=== PATIENT | female | born 1950 ===

== ENCOUNTER → 2018-07-23 | Outpatient (CLI) | payer OTHER, BC ==
[~2018-07-23] VITALS: Ht 157.5 cm; Wt 81.6 kg
[~2018-07-23] MED LIST: ALENDRONATE SOD70 MG PO; CYMBALTA60 MG PO; LYRICA100 MG PO; MYRBETRIQ50 MG PO; NORCO 5-325 TA1 EACH PO; PRAVACHOL40 MG PO
--- NOTE | ~2018-07-23 | HPC ---
[facility] [place] [place] [address] PAIN MANAGEMENT CONSULTATION Name: HIGINIO CORDOVA Room #: REG ALTAGRACIA Garcia.#: [id number] Admission: 07/23/18 ������������������ Attend Phys: Bishop Osorio MD Discharge: ������������������ Date of : 50 Report #: [id number] THIS REPORT FOR: //name// CC: Dr. Lyla POPE physician/PCP Bishop Osorio DATE OF SERVICE: 07/23/2018 CHIEF COMPLAINT: Low back pain. HISTORY OF PRESENT ILLNESS: The patient is a 68-year-old who I am seeing today for low back pain and right hip pain. She has had pain for many years. It has been worse recently. 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 She does not spent a lot of time on her feet, sitting at her job. When she gets up and walks, she gets pain in her back and also in the right hip. She had polio the 1950s as a baby and has had atrophy of the right lower extremity and chronic hip pain. She has walked with a limp or an antalgic gait nearly all her life. She has some weakness also in her right upper extremity. She is developing more of a tremor as she ages. She had an orthopedic assessment of her right hip. While they identified degenerative changes, they felt that her muscle mass and her polio would present problems with joint replacement and therefore, they did not think that they could help. Pain is made worse with walking and standing, improved by sitting. She describes it as a constant, burning sensation, 5/10, at its worst it is an 8. MEDICATIONS: Lyrica 100 mg t.i.d., Cymbalta 60 mg b.i.d., Myrbetriq 40 mg daily, alendronate weekly. She had previously taken some hydrocodone with good improvement. ALLERGIES: None. PAST MEDICAL HISTORY: Remarkable for the polio. PAST SURGICAL HISTORY: She has a history of hysterectomy. SOCIAL HISTORY: Negative for tobacco and alcohol use. She . She lives independently and alone and again works 40 hours a week in the [employer] center. PHYSICAL EXAMINATION: GENERAL: She is very pleasant 68-year-old female. [facility] [address] [place] [address] PAIN MANAGEMENT CONSULTATION Name: HIGINIO CORDOVA Room #: [facility].#: [id number] Admission: 07/23/18 ������������������ Attend Phys: Bishop Osorio MD Discharge: ������������������ Date of : 50 Report #: [id number] VITAL SIGNS: Her blood pressure is 143/72, heart rate 73, respirations 16. MUSCULOSKELETAL: She moves from sitting to standing position and walks with antalgic gait. Pain radiates not only from her back to her right hip, but down into the right leg and calf. There is pain across the lumbosacral segment with forward flexion and extension. Straight leg raising is positive on the right, reproducing radicular symptoms. ASSESSMENT AND PLAN: I reviewed her notes from [facility], where she recently underwent an epidural injection in my clinic at L4-L5. She had previously had an injection with Dr. Curry at L5-S1. She reported that the injection provided in 2018 over a year ago provided many months of good pain relief. I had also provided her with 30 tablets of hydrocodone, which she used sparingly over the course of the next 6-8 months. Today, we agreed that we would repeat the epidural injection at L4-L5 and I would repeat her prescription for 30 tablets of hydrocodone for severe pain episodes. She reports that she uses these not preemptively, but uses them at the end of a long day when her pain is severe and she still has things to do around her house. She is grateful for the relief, has no significant side effects. PROCEDURE: Epidural injection at L4-L5, right paramedian under fluoroscopic guidance. She was taken to fluoroscopic suite, placed prone, skin prepped with ChloraPrep. Skin anesthetized over the L4-L5 interspace. A 20-gauge Tuohy epidural needle was advanced first attempt in the epidural space with loss of resistance technique. There was no blood or CSF aspirated. A 1 mL of Omnipaque injected. Good spread of dye observed in the epidural space followed by 3 mL of 0.5% lidocaine mixed with 80 mg of triamcinolone. She tolerated the procedure well. She was observed for 45 minutes and discharged. We had a discussion about the importance of safeguarding medications. She was asked to sign an opioid agreement. A prescription for hydrocodone was provided. ��������������������������������������������� ���������������������������������������� By: ��������������������������������������������� 1630 1221 Bishop Osorio MD /nt
[2018-07-23 09:51] VITALS: BP 143/72
--- NOTE | 2018-07-23 10:16 | NUR ---
Pain Clinic Assessment: 1. History of Osteoarthritis: Right Lower Extremity Left Lower Extremity Left Upper Extremity History of Rheumatoid Arthritis: Not Applicable 2. Height: 5 ft. 2 in. 157.5 cm. Weight: 180.0 lb. oz. 81.648 kg. Patient's BMI: 32.9 3. Vital Signs: BP: 143/72 Pulse: 73 Resp: 16 Temp: 02 Sat: 98 ECG Mon: 4. Pain Intensity: 5 5. Fall Risk: Dizziness: N Needs help standing or walking: Y Fallen in the last 3 months: N Fall risk comments: 6. Patient on Blood Thinner: None 7. History of Hypertension: N 8. Opioid Therapy greater than 6 weeks: N Opiate Contract Signed: 9. Risk Assessment Tool Provided: 10. Functional Assessment Tool: 11. Recreational Drug Use: Never Drug Type: Tobacco Use: Never Smoker Tobacco Type: Amount or Packs/day: How Many Years: Alcohol Use: No Frequency: Quant:
== END | disposition home or self-care (01) ==
LOC: PAIN 06:52
DX: M54.16 Radiculopathy, lumbar region (principal); G89.29 Other chronic pain; M25.551 Pain in right hip; Z98.890 Other specified postprocedural states; Z90.710 Acquired absence of both cervix and uterus; Z79.891 Long term (current) use of opiate analgesic; Z79.899 Other long term (current) drug therapy

== ENCOUNTER → 2019-05-20 | Outpatient (CLI) | payer OTHER, BC ==
[~2019-05-20] VITALS: Ht 157.5 cm; Wt 88.6 kg
[~2019-05-20] MED LIST changes: +HYDROCODON-ACE1 EAC7 PO
[2019-05-20 08:58] VITALS: BP 151/71
--- NOTE | 2019-05-20 09:08 | NUR ---
Pain Clinic Assessment: 1. History of Osteoarthritis: Right Lower Extremity Left Lower Extremity Left Upper Extremity History of Rheumatoid Arthritis: Not Applicable 2. Height: 5 ft. 2 in. 157.5 cm. Weight: 195.4 lb. oz. 88.633 kg. Patient's BMI: 35.7 3. Vital Signs: BP: 151/71 Pulse: 78 Resp: 14 Temp: 02 Sat: 100 ECG Mon: 4. Pain Intensity: 0 TODAY 5. Fall Risk: Dizziness: N Needs help standing or walking: Y Fallen in the last 3 months: N Fall risk comments: 6. Patient on Blood Thinner: None 7. History of Hypertension: N 8. Opioid Therapy greater than 6 weeks: N Opiate Contract Signed: 9. Risk Assessment Tool Provided: 10. Functional Assessment Tool: 11. Recreational Drug Use: Never Drug Type: Tobacco Use: Never Smoker Tobacco Type: Amount or Packs/day: How Many Years: Alcohol Use: No Frequency: Quant:
--- NOTE | 2019-05-20 14:31 | HPC ---
[facility] [address] [place] [address] PAIN MANAGEMENT CONSULTATION Name: HIGINIO CORDOVA Room #: REG ALTAGRACIA Leong.#: [id number] Admission: 05/20/19 Attend Phys: Bishop Osorio MD Discharge: Date of : 50 Report #: [id number] THIS REPORT FOR: cc: NIKO - Ashley family physician/PCP NIKO - Ashley family physician/PCP Bishop Osorio MD ~ CC: Dr. Lyla POPE physician/PCP Bishop Osorio DATE OF SERVICE: 05/20/2019 Visit for low back pain with weakness, right hip radiation consistent with modest radiculopathy. This is a followup visit for the patient who was last seen for an injection on 07/23/2018. She reported quite substantial pain relief following that injection was sustained. She would like to repeat the injection today. The pain is worse when she is standing on her feet. 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 She continues to work. As noted at last visit, she has weakness in the lower extremities from polio as a child. She has some atrophy of muscles and has had antalgic and weak gait. Weakness in her upper extremities has been noted as well as trouble in her shoulders. MEDICATIONS: Pravastatin, alendronate, Myrbetriq, duloxetine and Lyrica. ALLERGIES: None. PHYSICAL EXAMINATION: VITAL SIGNS: Blood pressure is 151/71, heart rate 81. She is independent in her movements from sitting to standing, but again her gait is antalgic and weak. There is some pain across the low back. Straight leg raising reproduces pain across her hips, worse right than left. Sensation is normal. Weakness in hip flexion, leg extension is present, worse on the right. There is some atrophy of the right lower extremity. Pain with internal and external rotation of the hip. IMPRESSION: Lumbar radiculopathy, L4-L5. PROCEDURE: Lumbar epidural injection under fluoroscopic guidance. DESCRIPTION OF PROCEDURE: After informed consent, she was taken to fluoroscopic suite, placed prone, skin prepped with ChloraPrep. Skin anesthetized over the [facility] [address] [place] [address] PAIN MANAGEMENT CONSULTATION Name: HIGINIO CORDOVA Room #: REG [facility].#: [id number] Admission: 05/20/19 Attend Phys: Bishop Osorio MD Discharge: Date of : 50 Report #: [id number] L4-L5 interspace. A 20-gauge Tuohy epidural needle advanced first attempt in the epidural space with loss of resistance. No blood or CSF was aspirated. A 1 mL of Omnipaque was injected. Good spread of dye observed followed by 3 mL of 0.5% lidocaine mixed with 80 mg triamcinolone. She tolerated the procedure well and was observed for 45 minutes and discharged with a pain score of 0. Follow up planned as needed for further injections. <ELECTRONICALLY SIGNED> By: Bishop Osorio MD 05/20/19 1431 1342 1405 Bishop Osorio MD /jennifer
== END | disposition home or self-care (01) ==
LOC: PAIN 06:49
DX: M54.16 Radiculopathy, lumbar region (principal); G89.29 Other chronic pain; Z79.899 Other long term (current) drug therapy; Z98.890 Other specified postprocedural states; Z79.891 Long term (current) use of opiate analgesic

== ENCOUNTER → 2019-12-16 | Outpatient (CLI) | payer OTHER, BC ==
[~2019-12-16] VITALS: Ht 157.5 cm; Wt 88.1 kg
[2019-12-16 08:54] VITALS: BP 131/64
--- NOTE | 2019-12-16 09:01 | NUR ---
Pain Clinic Assessment: 1. History of Osteoarthritis: Right Lower Extremity Left Lower Extremity Left Upper Extremity HANDS History of Rheumatoid Arthritis: Not Applicable 2. Height: 5 ft. 2 in. 157.5 cm. Weight: 194.2 lb. oz. 88.089 kg. Patient's BMI: 35.5 3. Vital Signs: BP: 131/64 Pulse: 78 Resp: 16 Temp: 02 Sat: 100 ECG Mon: 4. Pain Intensity: 0 5. Fall Risk: Dizziness: N Needs help standing or walking: Y Fallen in the last 3 months: N Fall risk comments: 6. Patient on Blood Thinner: None 7. History of Hypertension: N 8. Opioid Therapy greater than 6 weeks: N Opiate Contract Signed: 9. Risk Assessment Tool Provided: LOW RISK 03/26 10. Functional Assessment Tool: 11. Recreational Drug Use: Never Drug Type: Tobacco Use: Never Smoker Tobacco Type: Amount or Packs/day: How Many Years: Alcohol Use: No Frequency: Quant:
--- NOTE | 2019-12-16 14:23 | HPC ---
[facility] [address] [place] [address] [place] [address] PAIN MANAGEMENT CONSULTATION Name: HIGINIO CORDOVA Room #: REG ALTAGRACIA Snowden.Iain.#: [id number] Admission: 12/16/19 Attend Phys: Bishop Osorio MD Discharge: Date of : 50 Report #: [id number] THIS REPORT FOR: cc: Trinidad Brown. Trinidad Rios. Bishop Comer MD ~ CC: Trinidad Roque. Kevin Osorio DATE OF SERVICE: 12/16/2019 CHIEF COMPLAINT: Low back pain with radicular symptoms into both legs, L4-L5. The patient returns to pain clinic today after receiving nearly 3-4 months of outstanding pain relief from an epidural injection performed in April. She is here today hoping for another injection. During that time, she was able to taper off of her Lyrica and rarely used pain medication. She has not had a recent MRI. We discussed obtaining one today. I am not sure we will ____ make changes and how we go about our treatment. We will consider it. She has a history of polio and walks with a very ataxic gait. She has atrophy of the right lower extremity and chronic hip pain. This gives her the appearance in walking of someone with scoliosis, although, during her procedure today, I looked at her spine. There is not a lot of curvature. She is no longer working. She was a registered nurse at [employer]. She does not get out of the house much and does not like to exercise, feeling that it makes are weaker. This may be possible due to her polio. Medications were reviewed and reconciled. There are no specific changes. She has some osteoarthritis of the right hip. She denies use of tobacco or alcohol. She has not fallen in the last 3 months. She is not on an opioid agreement, but I have given her some medications for occasional use. No more than one tablet every few days. I feel that this is safe and we have talked about the importance of safeguarding medications. She has no side effects. Prescription drug monitoring program information shows I am the only prescriber of opioids. Risk assessment tool has been provided and she is at low risk for any sort of addictions. Other symptoms today include some shortness of breath, dyspnea on exertion. She has no known cardiac or pulmonary issues. PHYSICAL EXAMINATION: [facility] [address] [place] [address] PAIN MANAGEMENT CONSULTATION Name: HIGINIO CORDOVA Room #: TIMOTHY Benitez#: [id number] Admission: 12/16/19 Attend Phys: Bishop Osorio MD Discharge: Date of : 50 Report #: [id number] GENERAL: She is 5 feet 2 inches, 195 pounds, BMI 35.7. VITAL SIGNS: Blood pressure 151/71, heart rate 78, respirations 14, O2 sat 100%. CHEST: Clear to auscultation. CARDIAC: Rhythm is regular. I could not appreciate a murmur. MUSCULOSKELETAL: Reveals good range of motion of the cervical spine. Tenderness across the thoracic spine, mostly across the lumbosacral segment. Positive straight leg raising bilaterally in the L3-L4 distribution and a bit also in L5. She has loss of deep tendon reflexes in the right leg, likely related to her polio. Straight leg raising is bilaterally positive. IMPRESSION: 1. Chronic lumbar radiculopathy with good response to epidural injections. 2. History of polio. 3. Dyspnea on exertion. RECOMMENDATIONS: Epidural injection today L4-L5 under fluoroscopic guidance. PROCEDURE: Lumbar epidural steroid injection, L4-L5. PROCEDURE NOTE: After both written and informed consent to include risk of spinal cord damage, increased pain, weakness and dural puncture, the patient was taken to the fluoroscopy suite, placed in the prone position. After sterile prep and drape, a skin wheal with lidocaine was raised. A 22-gauge epidural Tuohy needle was inserted in the midline at L5-L5 with good loss to resistance. Negative aspiration for cerebrospinal fluid or blood was noted. Then, 1 mL of Omnipaque under biplanar fluoroscopy showed good spread within the epidural space. This was followed with 80 mg of triamcinolone ____, 0.5 mL Lidocaine was then injected to flush the needle; it was removed. The patient was monitored for an appropriate period of time and discharged in good and stable condition. I did prescribe her hydrocodone #30 tablets, hydrocodone 5/325. No opioid agreement is established at this point in time. I have asked her to see if her primary care physician will prescribe a small amount of medication for her going forward, so she does not need to sign up for medication program at this low level. <ELECTRONICALLY SIGNED> By: Bishop Osorio MD 12/16/19 1423 [id number] Bishop Osorio MD /nt
== END | disposition home or self-care (01) ==
LOC: PAIN 08-27 13:40
PROVIDERS: ATTEND Anesthesiology Pain Medicine
DX: M54.16 Radiculopathy, lumbar region (principal); G89.29 Other chronic pain; Z98.890 Other specified postprocedural states; Z79.899 Other long term (current) drug therapy; Z86.12 Personal history of poliomyelitis

== ENCOUNTER → 2020-05-25 | Outpatient (CLI) | payer OTHER, BC ==
[~2020-05-25] VITALS: Ht 157.5 cm; Wt 87.4 kg
[2020-05-25 12:41] VITALS: BP 130/74
--- NOTE | 2020-05-25 12:49 | NUR ---
Pain Clinic Assessment: 1. History of Osteoarthritis: Right Lower Extremity Left Lower Extremity Left Upper Extremity HANDS History of Rheumatoid Arthritis: Not Applicable 2. Height: 5 ft. 2 in. 157.5 cm. Weight: 192.6 lb. oz. 87.363 kg. Patient's BMI: 35.2 3. Vital Signs: BP: 130/74 Pulse: 75 Resp: 16 Temp: 02 Sat: 94 ECG Mon: 4. Pain Intensity: 2 NOW 8 W/ACTIVITY 5. Fall Risk: Dizziness: N Needs help standing or walking: Y Fallen in the last 3 months: Y Fall risk comments: HAS FELL TWICE IN 90 DAYS/FELL FORWARD BOTH TIMES 6. Patient on Blood Thinner: None 7. History of Hypertension: N 8. Opioid Therapy greater than 6 weeks: N Opiate Contract Signed: 9. Risk Assessment Tool Provided: LOW RISK 03/26 10. Functional Assessment Tool: 11. Recreational Drug Use: Never Drug Type: Tobacco Use: Never Smoker Tobacco Type: Amount or Packs/day: How Many Years: Alcohol Use: No Frequency: Quant:
== END ==
LOC: PAIN 06:55
PROVIDERS: ATTEND Anesthesiology Pain Medicine
DX: M54.16 Radiculopathy, lumbar region (principal); G89.29 Other chronic pain; E11.40 Type 2 diabetes mellitus with diabetic neuropathy, unspecified; M19.90 Unspecified osteoarthritis, unspecified site; E66.01 Morbid (severe) obesity due to excess calories; Z68.35 Body mass index [BMI] 35.0-35.9, adult; Z98.890 Other specified postprocedural states; Z79.899 Other long term (current) drug therapy

== ENCOUNTER → 2020-07-24 | Outpatient (CLI) | payer OTHER, BC ==
[~2020-07-24] VITALS: Ht 157.5 cm; Wt 90.3 kg
[2020-07-24 08:53] VITALS: BP 123/71
--- NOTE | 2020-07-24 09:02 | NUR ---
Pain Clinic Assessment: 1. History of Osteoarthritis: Right Lower Extremity Left Lower Extremity Left Upper Extremity HANDS History of Rheumatoid Arthritis: Not Applicable 2. Height: 5 ft. 2 in. 157.5 cm. Weight: 199.0 lb. oz. 90.266 kg. Patient's BMI: 36.4 3. Vital Signs: BP: 123/71 Pulse: 73 Resp: 16 Temp: 02 Sat: 99 ECG Mon: 4. Pain Intensity: 0 5. Fall Risk: Dizziness: N Needs help standing or walking: Y Fallen in the last 3 months: N Fall risk comments: HAS FELL TWICE IN 90 DAYS/FELL FORWARD BOTH TIMES 6. Patient on Blood Thinner: None 7. History of Hypertension: N 8. Opioid Therapy greater than 6 weeks: N Opiate Contract Signed: 9. Risk Assessment Tool Provided: LOW RISK 03/26 10. Functional Assessment Tool: 11. Recreational Drug Use: Never Drug Type: Tobacco Use: Never Smoker Tobacco Type: Amount or Packs/day: How Many Years: Alcohol Use: No Frequency: Quant:
== END ==
LOC: PAIN 07:51
PROVIDERS: ATTEND Anesthesiology Pain Medicine
DX: M54.16 Radiculopathy, lumbar region (principal); G62.9 Polyneuropathy, unspecified; E66.9 Obesity, unspecified; E11.40 Type 2 diabetes mellitus with diabetic neuropathy, unspecified; Z88.8 Allergy status to other drugs, medicaments and biological substances; Z79.899 Other long term (current) drug therapy

== ENCOUNTER → 2020-10-26 | Outpatient (CLI) | payer OTHER, BC ==
[~2020-10-26] VITALS: Ht 157.5 cm; Wt 84.4 kg
[2020-10-26 10:48] VITALS: BP 139/70
--- NOTE | 2020-10-26 10:53 | NUR ---
Pain Clinic Assessment: 1. History of Osteoarthritis: Right Lower Extremity Left Lower Extremity Left Upper Extremity HANDS History of Rheumatoid Arthritis: Not Applicable 2. Height: 5 ft. 2 in. 157.5 cm. Weight: 186.0 lb. oz. 84.369 kg. Patient's BMI: 34.0 3. Vital Signs: BP: 139/70 Pulse: 72 Resp: 16 Temp: 02 Sat: 98 ECG Mon: 4. Pain Intensity: 8-9 with standing 5. Fall Risk: Dizziness: N Needs help standing or walking: Y Fallen in the last 3 months: N Fall risk comments: HAS FELL TWICE IN 90 DAYS/FELL FORWARD BOTH TIMES 6. Patient on Blood Thinner: None 7. History of Hypertension: N 8. Opioid Therapy greater than 6 weeks: N Opiate Contract Signed: 9. Risk Assessment Tool Provided: LOW RISK 1 10. Functional Assessment Tool: 11. Recreational Drug Use: Never Drug Type: Tobacco Use: Never Smoker Tobacco Type: Amount or Packs/day: How Many Years: Alcohol Use: No Frequency: Quant:
== END | disposition home or self-care (01) ==
LOC: PAIN 10-05 06:56
PROVIDERS: ATTEND Anesthesiology Pain Medicine
DX: M51.16 Intervertebral disc disorders with radiculopathy, lumbar region (principal); M43.16 Spondylolisthesis, lumbar region; M54.5 Low back pain; G89.29 Other chronic pain; E11.40 Type 2 diabetes mellitus with diabetic neuropathy, unspecified; M19.90 Unspecified osteoarthritis, unspecified site; G14 Postpolio syndrome; Z98.890 Other specified postprocedural states; Z79.899 Other long term (current) drug therapy; Z88.8 Allergy status to other drugs, medicaments and biological substances

== ENCOUNTER → 2020-12-25 | Outpatient (CLI) | payer OTHER, BC ==
[~2020-12-25] VITALS: Ht 157.5 cm; Wt 85.9 kg
[2020-12-25 13:23] VITALS: BP 138/61
--- NOTE | 2020-12-25 13:43 | NUR ---
Pain Clinic Assessment: 1. History of Osteoarthritis: Right Lower Extremity Left Lower Extremity Left Upper Extremity HANDS History of Rheumatoid Arthritis: Not Applicable 2. Height: 5 ft. 2 in. 157.5 cm. Weight: 189.4 lb. oz. 85.911 kg. Patient's BMI: 34.6 3. Vital Signs: BP: 138/61 Pulse: 72 Resp: 20 Temp: 02 Sat: 98 ECG Mon: 4. Pain Intensity: 8-9 with standing 0-sitti 5. Fall Risk: Dizziness: N Needs help standing or walking: Y Fallen in the last 3 months: N Fall risk comments: HAS FELL TWICE IN 90 DAYS/FELL FORWARD BOTH TIMES 6. Patient on Blood Thinner: None 7. History of Hypertension: N 8. Opioid Therapy greater than 6 weeks: N Opiate Contract Signed: 9. Risk Assessment Tool Provided: LOW RISK 1 10. Functional Assessment Tool: 11. Recreational Drug Use: Never Drug Type: Tobacco Use: Never Smoker Tobacco Type: Amount or Packs/day: How Many Years: Alcohol Use: No Frequency: Quant:
== END ==
LOC: PAIN 09:53
PROVIDERS: ATTEND Clinical Nurse Specialist Adult Health
DX: E11.40 Type 2 diabetes mellitus with diabetic neuropathy, unspecified (principal); G89.29 Other chronic pain; Z79.891 Long term (current) use of opiate analgesic; Z79.899 Other long term (current) drug therapy

== ENCOUNTER → 2021-02-19 | Outpatient (CLI) | payer OTHER, BC ==
[~2021-02-19] VITALS: Ht 157.5 cm; Wt 88.8 kg
[~2021-02-19] MED LIST changes: +CALCIUM500 MG PO; +COLACE100 MG PO; +VITAMIN D31250 MC1 PO
[2021-02-19 09:22] VITALS: BP 145/67
--- NOTE | 2021-02-19 09:36 | NUR ---
Pain Clinic Assessment: 1. History of Osteoarthritis: Right Lower Extremity Left Lower Extremity Left Upper Extremity HANDS History of Rheumatoid Arthritis: Not Applicable 2. Height: 5 ft. 2 in. 157.5 cm. Weight: 195.8 lb. oz. 88.814 kg. Patient's BMI: 35.8 3. Vital Signs: BP: 145/67 Pulse: 76 Resp: 18 Temp: 02 Sat: 99 ECG Mon: 4. Pain Intensity: 8-9 with standing 0-sitti 5. Fall Risk: Dizziness: N Needs help standing or walking: Y Fallen in the last 3 months: N Fall risk comments: HAS FELL TWICE IN 90 DAYS/FELL FORWARD BOTH TIMES 6. Patient on Blood Thinner: None 7. History of Hypertension: N 8. Opioid Therapy greater than 6 weeks: N Opiate Contract Signed: 9. Risk Assessment Tool Provided: LOW RISK 1 10. Functional Assessment Tool: 11. Recreational Drug Use: Never Drug Type: Tobacco Use: Never Smoker Tobacco Type: Amount or Packs/day: How Many Years: Alcohol Use: No Frequency: Quant:
== END ==
LOC: PAIN 08:58
PROVIDERS: ATTEND Anesthesiology Pain Medicine
DX: G89.29 Other chronic pain (principal); M54.50 Low back pain, unspecified; M54.16 Radiculopathy, lumbar region; G14 Postpolio syndrome; E11.40 Type 2 diabetes mellitus with diabetic neuropathy, unspecified; Z79.899 Other long term (current) drug therapy